=== PATIENT | male | born 1975 | race Caucasian/White ===

== ENCOUNTER 2016-11-18 15:50 | Emergency (ER) | payer OTHER ==
[~2016-11-18] VITALS: Ht 175.3 cm; Wt 159.7 kg
[~2016-11-18 15:50] MED LIST: A/B OTIC15 ML; BACTRIM DS1 TAB PO; BACTRIM1 TAB PO; CLEOCIN HCL300 MG PO; KEFLEX500 MG PO; LAC PO; LEVAQUIN500 MG PO; MOTRIN800 MG PO; PAXIL20 MG PO; ZESTRIL20 MG PO; ZOC10 PO; [UNRECOGNIZED DRUG - OTHER] TOP
[2016-11-18 17:11] VITALS: BP 131/79
== END 2016-11-18 17:11 | disposition home or self-care (01) ==
LOC: ED 15:50
DX: L02.31 Cutaneous abscess of buttock (principal); Z79.899 Other long term (current) drug therapy
CPT/HCPCS: J2001

== ENCOUNTER 2016-11-19 16:17 | Emergency (ER) | payer OTHER ==
[~2016-11-19] VITALS: Ht 175.3 cm; Wt 156.9 kg
[2016-11-19 19:31] VITALS: BP 145/92
== END 2016-11-19 19:31 | disposition home or self-care (01) ==
LOC: ED 16:17
DX: K61.0 Anal abscess (principal); I10 Essential (primary) hypertension; J45.909 Unspecified asthma, uncomplicated; Z88.5 Allergy status to narcotic agent; Z79.51 Long term (current) use of inhaled steroids

== ENCOUNTER 2017-05-31 16:14 | Emergency (ER) | payer OTHER ==
[2017-05-31 17:47] VITALS: BP 148/74
== END 2017-05-31 17:47 | disposition home or self-care (01) ==
LOC: ED 16:14
DX: L02.214 Cutaneous abscess of groin (principal); J45.909 Unspecified asthma, uncomplicated; I10 Essential (primary) hypertension
CPT/HCPCS: J2001

== ENCOUNTER 2017-06-05 15:35 | Emergency (ER) | payer OTHER, MEDICAID ==
[~2017-06-05] VITALS: Ht 175.3 cm; Wt 139.2 kg
[2017-06-05 17:02] VITALS: BP 148/102
== END 2017-06-05 17:02 | disposition home or self-care (01) ==
LOC: ED 15:35
DX: Z48.01 Encounter for change or removal of surgical wound dressing (principal)

== ENCOUNTER 2017-06-28 15:52 | Emergency (ER) | payer OTHER ==
[~2017-06-28] VITALS: Ht 175.3 cm; Wt 161.5 kg
[2017-06-28 17:05] VITALS: BP 124/72
== END 2017-06-28 17:05 | disposition home or self-care (01) ==
LOC: ED 15:52
DX: L02.416 Cutaneous abscess of left lower limb (principal); J45.909 Unspecified asthma, uncomplicated; I10 Essential (primary) hypertension
CPT/HCPCS: J2001

== ENCOUNTER 2017-07-30 17:21 | Emergency (ER) | payer OTHER ==
[~2017-07-30] VITALS: Ht 172.7 cm; Wt 159.7 kg
[2017-07-30 18:25] VITALS: Ht 172.7 cm; Wt 159.7 kg
[2017-07-30 23:30] VITALS: BP 140/90
== END 2017-07-30 23:30 | disposition home or self-care (01) ==
LOC: ED 17:21
DX: K64.4 Residual hemorrhoidal skin tags (principal); J45.909 Unspecified asthma, uncomplicated; I10 Essential (primary) hypertension

== ENCOUNTER 2017-08-21 17:13 | Emergency (ER) | payer OTHER ==
[~2017-08-21] VITALS: Ht 175.3 cm; Wt 158.3 kg
[2017-08-21 17:19] VITALS: Ht 175.3 cm; Wt 158.3 kg
[2017-08-21 18:05] VITALS: BP 122/84
== END 2017-08-21 18:05 | disposition home or self-care (01) ==
LOC: ED 17:13
DX: L03.315 Cellulitis of perineum (principal); I10 Essential (primary) hypertension

== ENCOUNTER 2017-09-01 17:20 | Emergency (ER) | payer OTHER ==
[~2017-09-01] VITALS: Ht 175.3 cm; Wt 159.4 kg
[2017-09-01 17:48] VITALS: Ht 175.3 cm; Wt 159.4 kg
[2017-09-01 18:39] LABS: BASOPHIL % 0.7 % (0-2); RED CELL DISTRIBUTION WIDTH 13.7 % (11.5-14.5)
[2017-09-01 18:40] LABS: PLATELET COUNT 428 x10^3mcL (130-400)
[2017-09-01 18:48] LABS: CARBON DIOXIDE 24.5 mmol/L (21-32); CHLORIDE SERUM 104 mmol/L (98-107); GFR1 > 60 mL/min; GLUCOSE SERUM 150 mg/dL (74-106); POTASSIUM SERUM 3.8 mmol/L (3.5-5.1); SODIUM SERUM 138 mmol/L (136-145)
[2017-09-01 18:54] LABS: ALBUMIN 3.4 g/dL (3.4-5.0); ALKALINE PHOSPHATASE 94 U/L (46-116); ALT/SGPT 63 U/L (16-63); AST/SGOT 33 U/L (15-37); BILIRUBIN TOTAL 0.36 mg/dL (0.20-1.00); CHOLESTEROL 217 mg/dL (<200); HDL CHOLESTEROL 40 mg/dL (40-60); PHOSPHOROUS 3.4 mg/dL (2.5-4.9); TOTAL PROTEIN, SERUM 8.1 g/dL (6.4-8.2); URIC ACID 5.2 mg/dL (3.5-7.2)
[2017-09-01 19:24] VITALS: BP 135/83
== END 2017-09-01 19:40 | disposition home or self-care (01) ==
LOC: ED 17:20
PROVIDERS: Emergency Medicine
DX: F41.9 Anxiety disorder, unspecified (principal); I10 Essential (primary) hypertension; J45.909 Unspecified asthma, uncomplicated
CPT/HCPCS: 36415; 83880

== ENCOUNTER 2018-07-07 17:22 | Emergency (ER) | payer OTHER ==
[~2018-07-07] VITALS: Ht 175.3 cm; Wt 149.7 kg
[2018-07-07 17:56] VITALS: Ht 175.3 cm; Wt 149.7 kg
[2018-07-07 19:52] VITALS: BP 150/95
== END 2018-07-07 19:52 | disposition home or self-care (01) ==
LOC: ED 17:22
DX: L02.211 Cutaneous abscess of abdominal wall (principal); F41.9 Anxiety disorder, unspecified; J45.909 Unspecified asthma, uncomplicated; I10 Essential (primary) hypertension

== ENCOUNTER 2018-07-16 14:07 | Emergency (ER) | payer OTHER ==
[~2018-07-16] VITALS: Ht 175.3 cm; Wt 137.0 kg
[2018-07-16 14:21] VITALS: BP 152/94; Ht 175.3 cm; Wt 137.0 kg
== END 2018-07-16 16:59 | disposition home or self-care (01) ==
LOC: ED 14:07
DX: L02.211 Cutaneous abscess of abdominal wall (principal); J45.909 Unspecified asthma, uncomplicated; I10 Essential (primary) hypertension; F41.9 Anxiety disorder, unspecified

== ENCOUNTER 2018-10-18 13:17 | Emergency (ER) | payer OTHER ==
[~2018-10-18] VITALS: Ht 175.3 cm; Wt 158.8 kg
[2018-10-18 13:22] VITALS: Ht 175.3 cm; Wt 158.8 kg
[2018-10-18 15:55] VITALS: BP 146/99
== END 2018-10-18 15:55 | disposition home or self-care (01) ==
LOC: ED 13:17
DX: L03.311 Cellulitis of abdominal wall (principal); J45.909 Unspecified asthma, uncomplicated; I10 Essential (primary) hypertension; F10.10 Alcohol abuse, uncomplicated; Z98.890 Other specified postprocedural states

== ENCOUNTER 2018-12-19 14:25 | Emergency (ER) | payer OTHER ==
[~2018-12-19] VITALS: Ht 175.3 cm; Wt 153.8 kg
[2018-12-19 14:36] VITALS: Ht 175.3 cm; Wt 153.8 kg
[2018-12-19 17:48] VITALS: BP 144/88
== END 2018-12-19 17:48 | disposition home or self-care (01) ==
LOC: ED 14:25
DX: L03.311 Cellulitis of abdominal wall (principal); F17.210 Nicotine dependence, cigarettes, uncomplicated; J45.909 Unspecified asthma, uncomplicated; I10 Essential (primary) hypertension; F41.9 Anxiety disorder, unspecified; Z98.890 Other specified postprocedural states
CPT/HCPCS: 90715; 99406

== ENCOUNTER 2019-05-07 18:02 | Emergency (ER) | payer OTHER ==
[~2019-05-07] VITALS: Ht 175.3 cm; Wt 143.8 kg
[2019-05-07 18:52] VITALS: Ht 175.3 cm; Wt 143.8 kg
[2019-05-07 21:24] VITALS: BP 159/96
== END 2019-05-07 21:24 | disposition home or self-care (01) ==
LOC: ED 18:02
DX: R05 Cough (principal); J45.909 Unspecified asthma, uncomplicated; I10 Essential (primary) hypertension; F41.9 Anxiety disorder, unspecified; F10.10 Alcohol abuse, uncomplicated; Z71.6 Tobacco abuse counseling
CPT/HCPCS: Q0092

== ENCOUNTER 2019-08-11 04:09 | Emergency (ER) | payer OTHER ==
[~2019-08-11] VITALS: Ht 175.3 cm; Wt 142.9 kg
[2019-08-11 04:14] VITALS: Ht 175.3 cm; Wt 142.9 kg
[2019-08-11 06:33] VITALS: BP 120/75
== END 2019-08-11 06:33 | disposition home or self-care (01) ==
LOC: ED 04:09
DX: L03.116 Cellulitis of left lower limb (principal); J45.909 Unspecified asthma, uncomplicated; I10 Essential (primary) hypertension; F10.10 Alcohol abuse, uncomplicated

== ENCOUNTER 2019-10-06 02:20 | Emergency (ER) | payer OTHER ==
[~2019-10-06] VITALS: Ht 175.3 cm; Wt 138.8 kg
[2019-10-06 02:37] VITALS: Ht 175.3 cm; Wt 138.8 kg
[2019-10-06 05:19] LABS: BASOPHIL % 0.4 % (0-2); PLATELET COUNT 265 x10^3mcL (130-400); RED CELL DISTRIBUTION WIDTH 12.9 % (11.5-14.5)
[2019-10-06 05:27] LABS: CALCIUM 8.5 mg/dL (8.5-10.1); CARBON DIOXIDE 27.6 mmol/L (21-32); CHLORIDE SERUM 97 mmol/L (98-107); CREATININE SERUM 0.8 mg/dL (0.7-1.3); GFR1 > 60 mL/min; GLUCOSE SERUM 308 mg/dL (74-106); POTASSIUM SERUM 3.6 mmol/L (3.5-5.1); SODIUM SERUM 133 mmol/L (136-145)
[2019-10-06 05:42] LABS: ALKALINE PHOSPHATASE 121 U/L (46-116); ALT/SGPT 51 U/L (16-63); AST/SGOT 23 U/L (15-37); BILIRUBIN TOTAL 0.8 mg/dL (0.20-1.00); TOTAL PROTEIN, SERUM 7.5 g/dL (6.4-8.2)
[2019-10-06 05:44] LABS: ALBUMIN 3.1 g/dL (3.4-5.0)
[2019-10-06 05:45] LABS: C REACTIVE PROTEIN 13.3 mg/dL (<=0.9)
[2019-10-06 06:27] VITALS: BP 126/66
[2019-10-06 06:37] LABS: ERYTHROCYTE SED RATE 77 mm/hr (0-15)
== END 2019-10-06 06:27 | disposition home or self-care (01) ==
LOC: ED 02:20
PROVIDERS: Specialist
DX: L02.214 Cutaneous abscess of groin (principal); J45.909 Unspecified asthma, uncomplicated; I10 Essential (primary) hypertension
CPT/HCPCS: J0696; J2001; J3370; J7060; Q0092

== ENCOUNTER 2019-10-07 15:56 | Emergency (ER) | payer OTHER ==
[~2019-10-07] VITALS: Ht 175.3 cm; Wt 135.6 kg
[2019-10-07 16:16] VITALS: BP 137/90; Ht 175.3 cm; Wt 135.6 kg
== END 2019-10-07 17:59 | disposition home or self-care (01) ==
LOC: ED 15:56
DX: L02.416 Cutaneous abscess of left lower limb (principal); S71.102D Unspecified open wound, left thigh, subsequent encounter; I10 Essential (primary) hypertension; J45.909 Unspecified asthma, uncomplicated; F10.10 Alcohol abuse, uncomplicated; Z48.01 Encounter for change or removal of surgical wound dressing; X58.XXXD Exposure to other specified factors, subsequent encounter